=== PATIENT | female | born 2000 | race Caucasian/White ===

== ENCOUNTER 2025-03-30 14:10 | Emergency (ER) | payer MEDICAID, OTHER ==
[~2025-03-30] VITALS: Ht 162.6 cm; Wt 61.3 kg
[~2025-03-30 14:10] MED LIST: [UNRECOGNIZED DRUG - OTHER]
[2025-03-30 14:21] VITALS: TEMP 98.9
[2025-03-30] MEDS ORDERED: IOHEXOL 350 MG/ML 100 ML VIAL ONE (14:58)
[2025-03-30] MEDS: SODIUM CHLORIDE 0.9% 1,000 ML IV ONE (15:06)
[2025-03-30 15:20] LABS: CALCIUM, TOTAL 8.8 mg/dL (8.8-10.5); CREATININE 0.73 mg/dL (0.60-1.30); GLOMERULAR FILTR. RATE CALC > 60 mL/min (>60); GLUCOSE,RANDOM 81 mg/dL (70-110); SODIUM SERUM 144 mmol/L (136-145); UREA NITROGEN, BLOOD 12 mg/dL (7-18)
[2025-03-30 15:29] LABS: TROPONIN I-HIGH SENSITIVITY Less Than 4 ng/L (<51)
[2025-03-30 15:33] LABS: PLATELET COUNT (AUTO) 298 K/uL (150-450); RED BLOOD CELL COUNT(AUTO) 4.09 MIL/uL (4.00-5.20); RED CELL DISTRIBUTION WIDTH 12.8 % (11.5-14.5); WHITE BLOOD COUNT (AUTO) 11.8 K/uL (4.5-11.0)
[2025-03-30 15:38] LABS: ASPARTATE AMINOTRANSFERASE 15.0 U/L (15-37); TOTAL PROTEIN, SERUM 7.1 g/dL (6.4-8.2)
[2025-03-30 18:05] VITALS: BP 111/60; PULSE 62; RESP 17; O2SAT 99
[2025-03-30 18:11] LABS: APPEARANCE,URINE CLEAR (CLEAR); GLUCOSE, URINE (UA) NEGATIVE (NEGATIVE); LEUKOCYTE ESTERASE ,URINE NEGATIVE (NEGATIVE); NITRATE,URINE NEGATIVE (NEGATIVE); OCCULT BLOOD,URINE NEGATIVE (NEGATIVE); SPECIFIC GRAVITIY, URINE 1.047 (1.003-1.030)
== END 2025-03-30 19:17 | disposition home or self-care (01) ==
LOC: EMS 14:10
DX: R55 Syncope and collapse (principal); R10.33 Periumbilical pain; R06.02 Shortness of breath
CPT/HCPCS: 99285; 74177; 71045; 80048; 80076; 81003; 83690; 83735; 83880; 84484; 84703; 85025; 36415; 93005; Q9967